=== PATIENT | female | born 1945 | race Hispanic/Latino ===

== ENCOUNTER 2016-11-06 11:33 | Day surgery (SDC) | payer MEDICARE ==
[2016-11-06] MEDS ORDERED: IOPIDINE ONE (11:43)
[2016-11-06] MEDS ORDERED: MYDRIACYL ONE (11:43)
[2016-11-06] MEDS ORDERED: NEOFRIN ONE (11:43)
[2016-11-06] MEDS ORDERED: NEOFRIN OD ONE (12:46)
[2016-11-06] MEDS ORDERED: IOPIDINE OD ONE (12:46)
[2016-11-06] MEDS ORDERED: MYDRIACYL OD ONE (12:46)
[2016-11-06 13:26] VITALS: BP 142/80
== END 2016-11-06 13:43 | disposition home or self-care (01) ==
LOC: OR 11:33
PROVIDERS: ATTEND Specialist
DX: H26.492 Other secondary cataract, left eye (principal)